=== PATIENT | female | born 1955 | race Asian ===

== ENCOUNTER 2022-10-27 11:20 | Inpatient (IN) | payer MEDICAID ==
[~2022-10-27] VITALS: Ht 144.8 cm; Wt 56.0 kg
[2022-10-27 13:24] LABS: Basophils # (auto) 0.1 10 ^3/uL (0-0.2); Eosinophils # (auto) 0.1 10 ^3/uL (0-0.8); Eosinophils % (auto) 1.3 % (0.0-7.0); Hematocrit 38.8 % (36.0-46.0); Hemoglobin 12.4 g/dL (12.2-16.2); Lymphocytes % (auto) 31.7 % (10.0-50.0); Mean Corpuscular Hemoglobin 30.3 pg (28.0-32.0); Mean Corpuscular Hgb Conc. 31.9 g/dL (32.0-36.0); Monocytes # (auto) 0.6 10 ^3/uL (0-1.3); Monocytes % (auto) 9.9 % (0.0-12.0); Neutrophils # (auto) 3.5 10 ^3/uL (1.6-8.6); Neutrophils % (auto) 56.1 % (37.0-80.0); Red Blood Cells 4.08 10^6/uL (4.0-5.20); Red Cell Distribution Width 12.9 % (11.8-14.3); White Blood Cell 6.3 10^3/uL (4.4-10.8)
[2022-10-27 13:39] LABS: INR 1.08 (0.9-1.15); Partial Thromboplastin Time 27.3 sec (24.6-33.4)
[2022-10-27 13:40] LABS: Albumin 3.5 g/dL (3.4-5.0); BUN/Creatinine Ratio 23.6; Calcium 8.6 mg/dL (8.5-10.1); Magnesium 2.2 mg/dL (1.6-2.6); Potassium 4.2 mmol/L (3.5-5.1)
[2022-10-27 13:43] LABS: Bilirubin, Total 0.3 mg/dL (0.2-1.0); Total Protein 7.5 g/dL (6.4-8.2)
[2022-10-27 15:09] LABS: Urine Bacteria MANY /hpf (None Seen); Urine Blood Negative /uL (Negative); Urine WBC 5 /hpf (0 - 5)
[2022-10-27 15:31] LABS: Alcohol, Urine < 3.0 mg/dL (0-10); Amphetamine Screen, Urine NEGATIVE (NEGATIVE); Barbiturate Scree,Urine NEGATIVE (NEGATIVE); Benzodiazephine Screen, Urine NEGATIVE (NEGATIVE); Cannabinoid Screen, Urine NEGATIVE (NEGATIVE); Cocaine Screen, Urine NEGATIVE (NEGATIVE); Opiate Scree,Urine NEGATIVE (NEGATIVE); Phencyclidine Screen, Urine NEGATIVE (NEGATIVE)
[2022-10-27] MEDS ORDERED: cloNIDine HCL 0.1 MG TAB PO ONE (15:45)
[2022-10-27] MEDS ORDERED: OMEP-260 PO (17:23)
[2022-10-27] MEDS ORDERED: FERR1TAB8 PO (17:23)
[2022-10-27] MEDS ORDERED: ATEN25TA PO (17:23)
[2022-10-27] MEDS ORDERED: ALLO100T PO (17:23)
[2022-10-27] MEDS ORDERED: BENA20TA14 PO (17:23)
[2022-10-27] MEDS ORDERED: NIFE10CA3 PO (17:23)
[2022-10-27] MEDS ORDERED: ATOR40TA52 PO (17:23)
[2022-10-27] MEDS ORDERED: ASPirin 325 MG TAB PO ONE (17:30)
[2022-10-27] MEDS ORDERED: ACETAMINOPHEN 325 MG TAB PO PRN (17:30)
[2022-10-27] MEDS: SODIUM CHLORIDE 0.9% 1,000 ML IV SCH (17:39)
[2022-10-27] MEDS ORDERED: LORazepam 2MG/ML-1ML VIAL IV PRN (18:30)
[2022-10-27 18:35] LABS: Cholesterol 116 mg/dL (< 200)
[2022-10-27 18:38] LABS: HDL Cholesterol 51 mg/dL (40-59); LDL Cholesterol 63 mg/dL (< 100); Triglycerides 98 mg/dL (< 150)
[2022-10-27] MEDS: ATORVASTATIN 20 MG TAB PO SCH (22:00)
[2022-10-27 23:42] VITALS: BP 123/70
[2022-10-28 04:59] VITALS: BP 103/45
[2022-10-28 06:31] LABS: Basophils # (auto) 0 10 ^3/uL (0-0.2); Basophils % (auto) 0.7 % (0.0-2.0); Eosinophils # (auto) 0.3 10 ^3/uL (0-0.8); Eosinophils % (auto) 4.1 % (0.0-7.0); Hematocrit 33.7 % (36.0-46.0); Hemoglobin 10.8 g/dL (12.2-16.2); Lymphocytes # (auto) 1.8 10 ^3/uL (0.4-5.4); Lymphocytes % (auto) 29.9 % (10.0-50.0); Mean Corpuscular Hemoglobin 30.8 pg (28.0-32.0); Mean Corpuscular Hgb Conc. 32.1 g/dL (32.0-36.0); Mean Corpuscular Volume 95.8 fL (80.0-100.0); Monocytes # (auto) 0.6 10 ^3/uL (0-1.3); Monocytes % (auto) 9.7 % (0.0-12.0); Neutrophils # (auto) 3.4 10 ^3/uL (1.6-8.6); Neutrophils % (auto) 55.6 % (37.0-80.0); Nucleated Red Blood Cells % 0.1 %; Red Blood Cells 3.52 10^6/uL (4.0-5.20); Red Cell Distribution Width 12.9 % (11.8-14.3); White Blood Cell 6.2 10^3/uL (4.4-10.8)
[2022-10-28 06:46] LABS: Potassium 4.7 mmol/L (3.5-5.1)
[2022-10-28 07:03] LABS: BUN/Creatinine Ratio 24.6; Bilirubin, Total 0.7 mg/dL (0.2-1.0); Calcium 8.3 mg/dL (8.5-10.1)
[2022-10-28 09:00] VITALS: BP 110/49
[2022-10-28] MEDS ORDERED: ENOXAPARIN SOD 40 MG/0.4 ML SYRINGE SC SCH (10:00)
[2022-10-28] MEDS: ASPirin 81 mg TAB PO SCH (10:00)
[2022-10-28] MEDS: SODIUM CHLORIDE 0.9% 1,000 ML IV SCH (10:10)
[2022-10-28] MEDS ORDERED: cefTRIAXone 1GM/50ML D5W 50 ML IV ONE (12:30)
[2022-10-28 13:00] VITALS: BP 112/54
[2022-10-28 17:00] VITALS: BP 142/64
[2022-10-28 22:00] VITALS: BP 155/58
[2022-10-28] MEDS: ATORVASTATIN 20 MG TAB PO SCH (22:05)
[2022-10-28 22:10] VITALS: BP 163/73
[2022-10-28] MEDS ORDERED: LORazepam 2MG/ML-1ML VIAL IV PRN (23:00)
[2022-10-29] MEDS: SODIUM CHLORIDE 0.9% 1,000 ML IV SCH (02:50)
[2022-10-29 05:00] VITALS: BP 168/74
[2022-10-29 09:00] VITALS: BP 153/78
[2022-10-29] MEDS ORDERED: cefTRIAXone 1GM/50ML D5W 50 ML IV SCH (09:00)
[2022-10-29] MEDS: ASPirin 81 mg TAB PO SCH (09:23)
[2022-10-29] MEDS ORDERED: FERROUS SULFATE 325mg EC TAB PO SCH (10:00)
[2022-10-29] MEDS ORDERED: ALLOPURINOL 100 MG TAB PO SCH (10:00)
[2022-10-29] MEDS ORDERED: ATENOLOL 25 MG TAB PO SCH (10:00)
[2022-10-29] MEDS ORDERED: LISINOPRIL 20 MG TAB PO ONE (11:15)
[2022-10-29] MEDS ORDERED: METH5TAB68 PO (12:33)
[2022-10-29] MEDS ORDERED: CIPR500T4 PO (12:33)
[2022-10-29 13:00] VITALS: BP 155/85
[2022-10-29 16:52] VITALS: BP 167/98
[2022-10-29] MEDS ORDERED: NIFEdipine ER 30 MG TAB PO ONE (17:45)
[2022-10-29 18:08] VITALS: BP 155/85
[2022-10-29] MEDS ORDERED: ATORVASTATIN 20 MG TAB PO SCH (22:00)
== END 2022-10-29 19:00 | disposition home or self-care (01) | DRG 254 ==
LOC: ER 11:20 → OVERFLOW 17:22 → WEST WING 22:15
PROVIDERS: ADMIT Nurse Practitioner Family; ATTEND Hospitalist
DX: R13.10 Dysphagia, unspecified (principal); I31.39 Other pericardial effusion (noninflammatory); N39.0 Urinary tract infection, site not specified; E03.9 Hypothyroidism, unspecified; E78.5 Hyperlipidemia, unspecified; F17.200 Nicotine dependence, unspecified, uncomplicated; I10 Essential (primary) hypertension; Z20.822 Contact with and (suspected) exposure to COVID-19; E05.90 Thyrotoxicosis, unspecified without thyrotoxic crisis or storm; M19.90 Unspecified osteoarthritis, unspecified site; Z79.82 Long term (current) use of aspirin; Z79.899 Other long term (current) drug therapy; Z82.49 Family history of ischemic heart disease and other diseases of the circulatory system; Z83.3 Family history of diabetes mellitus; Z86.73 Personal history of transient ischemic attack (TIA), and cerebral infarction without residual deficits
CPT/HCPCS: 36415; 70450; 70490; 70551; 71250; 73562; 76536; 80053; 80061; 80307; 81001; 83735; 83880; 84439; 84443; 84484; 84550; 85025; 85610; 85730; 87426; 92610; 93005; 93306; 93886; 97110; 97116; 97163; 97530; G0378; J0696; J7060